=== PATIENT | female | born 1990 | race Caucasian/White ===

== ENCOUNTER → 2017-01-29 | Outpatient (CLI) | payer OTHER ==
[2016-04-25 06:45] VITALS: BP 124/68
[~2017-01-29] MED LIST: HYDR-2758 PO
--- NOTE | 2017-01-30 09:23 | RAD ---
Exam: PA and lateral chest radiograph History: Hemoptysis, recent bronchitis and sinus infection. Comparison: 11/12/2016. Findings: Cardiomediastinal silhouette is within normal limits for size. Bilateral lung combs are free of focal infiltrate. No pleural effusion is seen. Impression: No acute cardiopulmonary process.
== END | disposition home or self-care (01) ==
LOC: RAD 18:03
PROVIDERS: ATTEND Nurse Practitioner Family
DX: R04.2 Hemoptysis (principal)
CPT/HCPCS: 71020

== ENCOUNTER 2017-02-25 18:59 | Emergency (ER) | payer OTHER ==
[~2017-02-25] VITALS: Ht 157.5 cm; Wt 219.1 kg
[2017-02-25 19:05] VITALS: BP 140/85
[2017-02-25] MEDS ORDERED: METF500T4 PO (19:35)
[2017-02-25] MEDS ORDERED: ALBU1.25 NEB (19:35)
[2017-02-25] MEDS ORDERED: ALBU18HF IH (19:35)
[2017-02-25] MEDS ORDERED: LORA10TA68 PO (19:35)
[2017-02-25] MEDS ORDERED: CLINDAMYCIN HCL 150 MG CAPSULE PO ONE (20:30)
[2017-02-25] MEDS ORDERED: IBUPROFEN 800 MG TABLET. PO ONE (20:30)
[2017-02-25] MEDS ORDERED: IBUPROFEN 600 MG TABLET. PO ONE (20:30)
[2017-02-25] MEDS ORDERED: CLIN150C2 PO (20:32)
--- NOTE | 2017-02-25 20:32 | PHYS DOC ---
Past History Past Medical History: Diabetes Past Surgical History: No Surgical History Alcohol Use: None Drug Use: None Adult General Chief Complaint Chief Complaint: ABSCESS HPI HPI 26-year-old female morbidly obese with a history of multiple skin abscesses now presents to the emergency department complaining of an abscess which drained spontaneously. Patient states she has an abscess of the back of her left thigh which drained spontaneously. It was mildly sore but now improved. There is a scab on it. There is no redness. No fevers chills sweats or shaking chills. Patient feels well otherwise. She does have several other pimples which were read H she "squeezed and got some stuff out," and now they don't hurt anymore. Review of Systems Review of Systems Constitutional: Denies fever or chills [] Eyes: Denies change in visual acuity, redness, or eye pain [] HENT: Denies nasal congestion or sore throat [] Respiratory: Denies cough or shortness of breath [] Cardiovascular: No additional information not addressed in HPI [] GI: Denies abdominal pain, nausea, vomiting, bloody stools or diarrhea [] : Denies dysuria or hematuria [] Musculoskeletal: Denies back pain or joint pain [] Integument: Denies rash or skin lesions [] Neurologic: Denies headache, focal weakness or sensory changes [] Endocrine: Denies polyuria or polydipsia [] Current Medications Current Medications Current Medications Medications (Trade) Dose Ordered Sig/Korey Start Time Stop Time Status Last Admin Dose Admin Clindamycin HCl (Cleocin) 600 mg 1X ONCE 02/25/17 20:30 02/25/17 20:31 Ibuprofen (Motrin) 800 mg 1X ONCE 02/25/17 20:30 02/25/17 20:31 Allergies Allergies Allergies Coded Allergies Type Severity Reaction Last Updated Verified amoxicillin Allergy Unknown 02/25/17 Yes clavulanic acid Allergy Unknown 02/25/17 Yes sulfamethoxazole Allergy Unknown 02/25/17 Yes trimethoprim Allergy Unknown 02/25/17 Yes Physical Exam Physical Exam Morbidly obese female in no acute distress alert communicative and cooperative. She has a 2 cm x 3 cm abscess which drained spontaneously and has a small scab on the drainage site. It is no erythema warmth or fluctuance. Minimal surrounding induration but no erythema or crepitus patient also has a 1/2 cm scab on 2 raised pimple-like lesions one on each buttock point or these are nontender with no erythema or warmth /fluctuance area and she has no clinical fever Constitutional: Well developed, well nourished, no acute distress, non-toxic appearance. [] HENT: Normocephalic, atraumatic, bilateral external ears normal, oropharynx moist, no oral exudates, nose normal. [] Eyes: EOMI, conjunctiva normal, no discharge. [] Neck: Normal range of motion, no tenderness, supple, no stridor. [] Cardiovascular: No tachycardia in triage Lungs & Thorax: Normal and symmetrical chest wall excursion with no tachypnea. Normal respiratory rate and pulse ox] Abdomen: Bowel sounds normal, soft, no tenderness, no masses, no pulsatile masses. [] Skin: Warm, dry, no erythema, no rash. [] Back: No tenderness, no CVA tenderness. [] Extremities: No tenderness, no cyanosis, no clubbing, ROM intact, no edema. [] Neurologic: Alert and oriented X 3, normal motor function, normal sensory function, no focal deficits noted. [] Psychologic: Affect normal, judgement normal, mood normal. [] EKG EKG [] Radiology/Procedures Radiology/Procedures [] Course & Med Decision Making Course & Med Decision Making Pertinent Labs and Imaging studies reviewed. (See chart for details) Signs and symptoms consistent with multiple skin abscesses which are spontaneously resolving after spontaneous drainage. No crepitus or fluctuance. Patient is well-appearing with no signs of systemic illness. No clinical indication for incision and drainage as wounds are draining spontaneously. Do warm soaks and encourage drainage if any fluid accumulates as abscess contents. Dose of clindamycin given in ED and prescription dispensed. Patient aware to take NSAIDs as needed and finished her Avelox as prescribed following up with her primary care doctor for reevaluation and further treatment as needed. Other workup or treatment indicated at this time. Patient and spouse agree with outpatient follow-up and strict return precautions given [] Dragon Disclaimer Dragon Disclaimer This chart was dictated in whole or in part using Voice Recognition software in a busy, high-work load, and often noisy Emergency Department environment. It may contain unintended and wholly unrecognized errors or omissions. Departure Departure: Impression: Primary Impression: Skin abscess Disposition: 01 HOME, SELF-CARE Condition: GOOD Referrals: OMA STOKES APRN (PCP) Patient Instructions: Abscess Additional Instructions: Your skin abscess has drained spontaneously. Do warm soaks and apply warm compresses, encouraging drainage until healed. Finish antibiotics as prescribed. Follow up with your doctor in 2 days for recheck, and return immediately for new severe or worsening symptoms,or if you think it needs to be drained again. Scripts Clindamycin Hcl (CLEOCIN HCL) 150 Mg Capsule 2 CAP PO QID, #80 CAP Prov: MAURA MONTEZ MD 02/25/17 MAURA MONTEZ MD Feb 25, 2017 20:32
== END 2017-02-25 20:45 | disposition home or self-care (01) ==
LOC: ER 18:59
DX: L02.212 Cutaneous abscess of back [any part, except buttock and flank] (principal); E66.01 Morbid (severe) obesity due to excess calories; E11.9 Type 2 diabetes mellitus without complications; Z68.45 Body mass index [BMI] 70 or greater, adult; Z88.1 Allergy status to other antibiotic agents
CPT/HCPCS: 99283

== ENCOUNTER 2017-09-09 07:37 | Emergency (ER) | payer OTHER ==
[~2017-09-09] VITALS: Ht 157.5 cm; Wt 216.4 kg
[~2017-09-09 07:37] MED LIST changes: +ALBU1.25 NEB; +ALBU18HF IH; +CLIN150C2 PO; +LORA10TA68 PO; +METF500T4 PO
[2017-09-09] MEDS ORDERED: KETOROLAC 60 MG/2 ML VIAL. IM ONE (08:15)
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
[2017-09-09 09:15] VITALS: BP 140/70
[2017-09-09] MEDS ORDERED: NAPR500T4 PO (09:18)
[2017-09-09] MEDS ORDERED: CYCL-331 PO (09:18)
== END 2017-09-09 09:39 | disposition home or self-care (01) ==
LOC: ER 07:37
DX: S16.1XXA Strain of muscle, fascia and tendon at neck level, initial encounter (principal); S39.012A Strain of muscle, fascia and tendon of lower back, initial encounter; S76.011A Strain of muscle, fascia and tendon of right hip, initial encounter; E66.01 Morbid (severe) obesity due to excess calories; E28.2 Polycystic ovarian syndrome; E11.9 Type 2 diabetes mellitus without complications; Z68.45 Body mass index [BMI] 70 or greater, adult; Z88.1 Allergy status to other antibiotic agents; V89.2XXA Person injured in unspecified motor-vehicle accident, traffic, initial encounter; Y93.89 Activity, other specified; Y99.8 Other external cause status; Y92.488 Other paved roadways as the place of occurrence of the external cause
CPT/HCPCS: 72040; 72072; 72100; 73502; 96372; 99284; J1885

== ENCOUNTER 2017-10-01 18:14 | Emergency (ER) | payer OTHER ==
[~2017-10-01] VITALS: Ht 157.5 cm; Wt 216.8 kg
[~2017-10-01 18:14] MED LIST changes: +CYCL-331 PO; +NAPR500T4 PO
[2017-10-01 18:34] VITALS: BP 139/72
[2017-10-01] MEDS ORDERED: IBUP800T19 PO (19:01)
[2017-10-01] MEDS ORDERED: CEPH-264 PO (19:01)
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
== END 2017-10-01 19:16 | disposition home or self-care (01) ==
LOC: ER 18:14
DX: R19.8 Other specified symptoms and signs involving the digestive system and abdomen (principal); R10.33 Periumbilical pain; E11.9 Type 2 diabetes mellitus without complications; E28.2 Polycystic ovarian syndrome; E66.01 Morbid (severe) obesity due to excess calories; Z68.45 Body mass index [BMI] 70 or greater, adult; Z88.1 Allergy status to other antibiotic agents
CPT/HCPCS: 99283

== ENCOUNTER → 2017-11-02 | Outpatient (CLI) | payer OTHER ==
[~2017-11-02] MED LIST changes: +CEPH-264 PO; +IBUP800T19 PO; +NAPR-514 PO; -NAPR500T4 PO
[2017-11-02 08:46] LABS: BASO # 0.1 x10^3/uL (0.0-0.2); BASO % 1 % (0-3); EOS # 0.1 x10^3/uL (0.0-0.7); EOS % 2 % (0-3); HEMATOCRIT 39.4 % (36.0-47.0); LYMPH # 1.5 x10^3/uL (1.0-4.8); LYMPH % 20 % (24-48); MEAN CORPUSCULAR HEMOGLOBIN 26 pg (25-35); MEAN CORPUSCULAR HGB CONC 33 g/dL (31-37); MEAN CORPUSCULAR VOLUME 80 fL (79-100); MONO # 0.5 x10^3/uL (0.0-1.1); MONO % 7 % (0-9); NEUT # 5.1 x10^3uL (1.8-7.7); NEUT % 71 % (31-73); PLATELET COUNT 306 x10^3/uL (140-400); RED BLOOD COUNT 4.94 x10^6/uL (3.50-5.40); RED CELL DISTRIBUTION WIDTH 17.4 % (11.5-14.5); WHITE BLOOD COUNT 7.2 x10^3/uL (4.0-11.0)
[2017-11-02 09:26] LABS: ALBUMIN 3.3 g/dL (3.4-5.0); ALBUMIN/GLOBULIN RATIO 0.9 (1.0-1.7); C REACTIVE PROTEIN 21.6 mg/L (0-3.3); CALCIUM 8.7 mg/dL (8.5-10.1); CREATININE 0.6 mg/dL (0.6-1.0); GFR 121.8; POTASSIUM 4.5 mmol/L (3.5-5.1); TOTAL BILIRUBIN 0.3 mg/dL (0.2-1.0)
[2017-11-02 11:40] LABS: THYROID STIM HORMONE (TSH) 3.127 uIU/mL (0.358-3.740)
[2017-11-02 13:16] LABS: LUTEINIZING HORMONE 5.7 mIU/mL (.); PROLACTIN 12.6 ng/mL (4.8-23.3)
[2017-11-03 03:10] LABS: INSULIN LEVEL 59.1 uIU/mL (2.6-24.9)
== END | disposition home or self-care (01) ==
LOC: LAB 08:19
PROVIDERS: ATTEND Nurse Practitioner Family
DX: L68.0 Hirsutism (principal); R79.89 Other specified abnormal findings of blood chemistry
CPT/HCPCS: 36415; 80053; 80061; 82627; 83001; 83002; 83036; 83525; 84146; 84402; 84403; 84443; 85025; 86140

== ENCOUNTER → 2017-11-04 | Outpatient (CLI) | payer OTHER ==
--- NOTE | 2017-11-04 16:13 | RAD ---
Transabdominal and transvaginal sonography of the pelvis History: Pelvic pain. Dysmenorrhea. Transabdominal sonography: The uterus is anteverted in position. The longitudinal and AP and transverse dimensions of the uterus are 9.4 cm and 3.3 cm and 4.5 cm respectively. The endometrial canal is thickened and echogenic. Transvaginal sonography will be performed therefore. No uterine mass or fibroid is seen. No free fluid is seen within the cul-de-sac. No adnexal masses are seen. Neither ovary is visualized. Transvaginal sonography: The endometrial canal measures 10 mm in thickness and is echogenic consistent with the secretory phase of the menstrual cycle. No uterine mass or fibroid is seen. Small nabothian cysts are seen. The right ovary is not visualized. The left ovary measures 2.3 cm and 2.3 cm and 1.9 cm in size and is normal. Color Doppler flow is seen within the left ovary. No adnexal masses are seen. No free fluid is evident. IMPRESSION: The right ovary is not visualized. Otherwise unremarkable pelvic sonogram.
== END | disposition home or self-care (01) ==
LOC: US 14:50
PROVIDERS: ATTEND Nurse Practitioner Family
DX: N94.6 Dysmenorrhea, unspecified (principal); R10.2 Pelvic and perineal pain
CPT/HCPCS: 76830; 76856

== ENCOUNTER → 2018-08-04 | Outpatient (CLI) | payer OTHER ==
[~2018-08-04] MED LIST changes: -ALBU18HF IH; +ALBU2.5V8 IH; +HYDR-2155 PO; -HYDR-2758 PO; +METF500T16 PO; -METF500T4 PO
--- NOTE | 2018-08-04 12:18 | RAD ---
Pelvic ultrasound, 08/04/2018: HISTORY: Menorrhagia, pain Transabdominal and transvaginal scans were obtained. The uterus measures 8.1 x 4.1 x 4.4 cm. The central uterine echo complex as best demonstrated on the transabdominal scans is not significantly thickened. On the transvaginal scans in the lower uterine segment measures approximately 6 mm in AP dimension. More superiorly it is poorly defined due to artifacts. No specific uterine abnormality is detected. The ovaries are of normal size. No adnexal mass is seen. No free fluid is evident in the pelvis. IMPRESSION: No significant abnormality is detected. Electronically signed by: Francisco Rosa MD (08/04/2018 12:15 PM) [facility]
== END | disposition home or self-care (01) ==
LOC: US 10:58
PROVIDERS: ATTEND Family Medicine
DX: N92.1 Excessive and frequent menstruation with irregular cycle (principal); R10.9 Unspecified abdominal pain
CPT/HCPCS: 76830; 76856